=== PATIENT | female | born 1985 | race African-American/Black ===

== ENCOUNTER 2016-12-19 18:20 | Emergency (ER) | payer BC ==
[~2016-12-19] VITALS: Ht 152.4 cm; Wt 128.4 kg
[~2016-12-19 18:20] MED LIST: ASA81 PO; CEPH-568 PO; FOLI0.4T2 PO; GLU500 PO; IRON1TAB95 PO; PREN-89 PO; RANI-281 PO; VALA500T33 PO
[2016-12-19 18:57] VITALS: BP 140/66; PULSE 88; RESP 20; TEMP 98.2; O2SAT 98
--- NOTE | 2016-12-19 19:03 | NUR ---
Pt placed to ER waiting room in stable condition.
--- NOTE | 2016-12-19 19:50 | NUR ---
Pt ambulatory to bed 2. Report given to KIARA Roberson.
--- NOTE | 2016-12-19 19:50 | NUR ---
ER MD Prescott at bedside for evaluation
--- NOTE | 2016-12-19 20:03 | NUR ---
Patient to ER C/O right foot and lower leg swelling for the past week with tingling. Patient states that she saw primary physician but all labs came back normal. AAOx4, unlabored breathing, mild swelling to right leg, more pronounced than left side, no reddness, denies NV, no signs of acute distress.
--- NOTE | 2016-12-19 20:03 | NUR ---
Bria hough in [facility] - 12/20/16 at 0007 by HELLEN Patient to ER C/O right foot and lower leg
--- NOTE | 2016-12-19 20:08 | NUR ---
ER MD Prescott at bedside for evaluation
--- NOTE | 2016-12-19 20:30 | NUR ---
Financial Counselor at bedside for blood draw. Patient identified x2.
[2016-12-19 20:47] LABS: BASOPHILS # (AUTO) 0.1 K/uL (0.0-0.2); BASOPHILS % (AUTO) 1.3 % (0.0-2.0); EOSINOPHILS # (AUTO) 0.1 K/uL (0.0-0.4); EOSINOPHILS % (AUTO) 1.5 % (0.0-4.0); HEMATOCRIT 43.8 % (36-48); LYMPHOCYTES # (AUTO) 2.5 K/uL (1.0-5.5); LYMPHOCYTES % (AUTO) 33.6 % (20.5-51.5); MEAN CORPUSCULAR HEMOGLOBIN 30 pg (27-31); MEAN CORPUSCULAR HGB CONC 34 % (32-36); MEAN CORPUSCULAR VOLUME 88 fL (79.0-98.0); MONOCYTES # (AUTO) 0.5 K/uL (0.0-1.0); MONOCYTES % (AUTO) 7.1 % (1.7-9.3); NEUTROPHILS # (AUTO) 4.2 K/uL (1.8-7.7); NEUTROPHILS % (AUTO) 56.5 % (40.0-70.0); PLATELET COUNT (AUTO) 170 K/uL (130-430); RED BLOOD CELL COUNT(AUTO) 4.99 MIL/uL (4.2-6.2); RED CELL DISTRIBUTION WIDTH 12.8 % (9.0-15.0); WHITE BLOOD COUNT (AUTO) 7.4 K/uL (4.8-10.8)
--- NOTE | 2016-12-19 21:04 | NUR ---
Patient calm, resting, no signs of acute distress.
[2016-12-19 21:11] LABS: ALANINE AMINOTRANSFERASE 29 U/L (12-78); ALBUMIN 3.8 g/dL (3.4-4.8); ANION GAP 9 (5-15); ASPARTATE AMINOTRANSFERASE 13 U/L (10-37); CHLORIDE 106 mmol/L (98-107); GLUCOSE 126 mg/dL (70-99); POTASSIUM 3.3 mmol/L (3.5-5.1); SODIUM SERUM 141 mmol/L (136-145); TOTAL BILIRUBIN 0.2 mg/dL (0.0-1.0); TOTAL PROTEIN, SERUM 7.6 g/dL (6.4-8.3); UREA NITROGEN, BLOOD 14 mg/dL (8-21)
[2016-12-19 21:12] LABS: GFR AFRICAN AMERICAN 107 mL/min (>90)
[2016-12-19 21:40] VITALS: BP 124/71; PULSE 78; RESP 17; TEMP 98.1; O2SAT 97
--- NOTE | 2016-12-19 21:40 | NUR ---
Patient given written and verbal discharge instructions and verbalizes understanding. ER MD Prescott discussed with patient the results and treatment provided. Patient in stable condition. ID arm band removed. Patient educated on pain management and to follow up with PMD. Pain Scale 0/10. Opportunity for questions provided and answered.
== END 2016-12-19 21:40 | disposition home or self-care (01) ==
LOC: SED 18:20
DX: R60.9 Edema, unspecified (principal); R20.2 Paresthesia of skin; E28.2 Polycystic ovarian syndrome; Z88.1 Allergy status to other antibiotic agents
CPT/HCPCS: 36415; 71010; 80053; 83880; 84484; 85025; 93005; 99285

== ENCOUNTER 2017-04-05 11:59 | Day surgery (SDC) | payer BC ==
[~2017-04-05] VITALS: Ht 152.4 cm; Wt 127.9 kg
[2017-04-05] MEDS ORDERED: PROPOFOL 200MG/ 20ML VIAL (DIPRIVAN) IV ONE (12:16)
[2017-04-05] MEDS ORDERED: NS 1000 ML BAG IV ONE (12:16)
[2017-04-05] MEDS ORDERED: MIDAZOLAM HCL 5 MG/5 ML VIAL IVP ONE (12:16)
[2017-04-05] MEDS ORDERED: ONDANSETRON HCL 4 MG/2 ML VIAL IVP ONE (12:16)
[2017-04-05] MEDS ORDERED: CEFAZOLIN 2 GM IVPB PREMIX 50 ML IV ONE (12:16)
[2017-04-05] MEDS ORDERED: KETOROLAC TROMETHAMINE 30 MG VIAL IVP ONE (12:16)
[2017-04-05] MEDS ORDERED: SEVOFLURANE 15 MIN GAS INH ONE (12:16)
[2017-04-05] MEDS ORDERED: LR 1,000 ML IV.SOLN IV ONE (12:16)
[2017-04-05] MEDS ORDERED: fentaNYL CITRATE/PF 100 MCG/2 ML AMP IVP ONE (12:16)
[2017-04-05 13:06] LABS: HEMATOCRIT 42.1 % (36-48); HEMOGLOBIN 13.8 g/dL (12.0-16.0); MEAN CORPUSCULAR HGB CONC 33 % (32-36)
[2017-04-05 13:07] LABS: CALCIUM 8.6 mg/dL (8.4-11.0); CREATININE 0.72 mg/dL (0.55-1.30); POTASSIUM 3.7 mmol/L (3.5-5.1)
[2017-04-05 13:13] LABS: BASOPHILS % (AUTO) 0.3 % (0.0-2.0); EOSINOPHILS % (AUTO) 0.4 % (0.0-4.0); LYMPHOCYTES # (AUTO) 1.9 K/uL (1.0-5.5); LYMPHOCYTES % (AUTO) 24.9 % (20.5-51.5); MEAN CORPUSCULAR HEMOGLOBIN 29 pg (27-31); MEAN CORPUSCULAR VOLUME 90 fL (79.0-98.0); MONOCYTES # (AUTO) 0.4 K/uL (0.0-1.0); MONOCYTES % (AUTO) 5.4 % (1.7-9.3); NEUTROPHILS # (AUTO) 5.5 K/uL (1.8-7.7); PLATELET COUNT (AUTO) 146 K/uL (130-430); RED BLOOD CELL COUNT(AUTO) 4.68 MIL/uL (4.2-6.2); RED CELL DISTRIBUTION WIDTH 13.3 % (9.0-15.0); WHITE BLOOD COUNT (AUTO) 7.8 K/uL (4.8-10.8)
[2017-04-05] MEDS ORDERED: HYDROmorphone 2 MG/ML VIAL IVP PRN ×2 (13:30)
[2017-04-05] MEDS ORDERED: HYDROmorphone 1 MG INJ. 1 MG/ML AMPUL IVP PRN (13:30)
[2017-04-05] MEDS ORDERED: MEPERIDINE HCL/PF 25 MG/ML DISP.SYRIN IVP PRN ×2 (13:30)
[2017-04-05] MEDS ORDERED: LR 1,000 ML IV SCH (13:30)
[2017-04-05] MEDS ORDERED: ONDANSETRON HCL 4 MG/2 ML VIAL IVP PRN ×2 (13:30→14:15)
[2017-04-05] MEDS ORDERED: OXYCODONE/ACETAMINOPHEN 5-325 TABLET PO PRN ×2 (14:15)
[2017-04-05] MEDS ORDERED: IBUPROFEN 800 MG TABLET PO PRN (14:15)
[2017-04-05] MEDS ORDERED: HYDROmorphone 1 MG INJ. 1 MG/ML AMPUL ONE (14:32)
[2017-04-05 14:53] VITALS: BP_SYST 118
[2017-04-05] MEDS ORDERED: OXYCODONE/ACETAMINOPHEN 5-325 TABLET ONE (15:05)
== END 2017-04-05 16:55 | disposition home or self-care (01) ==
LOC: SDS 11:59
PROVIDERS: ATTEND Obstetrics & Gynecology
DX: D26.9 Other benign neoplasm of uterus, unspecified (principal); F41.9 Anxiety disorder, unspecified; E66.01 Morbid (severe) obesity due to excess calories; G47.33 Obstructive sleep apnea (adult) (pediatric); E28.2 Polycystic ovarian syndrome; D69.6 Thrombocytopenia, unspecified; Z98.890 Other specified postprocedural states; Z80.0 Family history of malignant neoplasm of digestive organs; Z68.43 Body mass index [BMI] 50.0-59.9, adult; Z80.3 Family history of malignant neoplasm of breast
CPT/HCPCS: 36415; 58563; 80048; 84703; 85025; 86886; 86900; 86901; 88305; 88331; J0690; J1170 ×2; J1885; J2250; J2405; J2704; J3010; J7030; J7120

== ENCOUNTER 2017-11-30 02:21 | Emergency (ER) | payer BC ==
[~2017-11-30] VITALS: Ht 152.4 cm; Wt 127.0 kg
[2017-11-30 02:30] VITALS: BP_SYST 119
== END 2017-11-30 02:50 | disposition home or self-care (01) ==
LOC: SED 02:21
DX: F41.9 Anxiety disorder, unspecified (principal); Z88.2 Allergy status to sulfonamides; Z88.1 Allergy status to other antibiotic agents; Z79.899 Other long term (current) drug therapy
CPT/HCPCS: 99284

== ENCOUNTER 2020-07-11 07:52 | Day surgery (SDC) | payer BC, SELFPAY ==
[2020-07-04 17:08] LABS: BASOPHILS % (AUTO) 0.7 % (0.0-2.0); EOSINOPHILS % (AUTO) 0.6 % (0.0-4.0); HEMATOCRIT 46.3 % (36-48); HEMOGLOBIN 15.1 g/dL (12.0-16.0); LYMPHOCYTES % (AUTO) 37.2 % (20.5-51.5); MEAN CORPUSCULAR HEMOGLOBIN 31 pg (27-31); MEAN CORPUSCULAR HGB CONC 33 % (32-36); MEAN CORPUSCULAR VOLUME 95 fL (79.0-98.0); MONOCYTES # (AUTO) 0.4 K/uL (0.0-1.0); MONOCYTES % (AUTO) 7.1 % (1.7-9.3); NEUTROPHILS % (AUTO) 54.4 % (40.0-70.0); PLATELET COUNT (AUTO) 129 K/uL (130-430); RED BLOOD CELL COUNT(AUTO) 4.88 MIL/uL (4.2-6.2); RED CELL DISTRIBUTION WIDTH 13.5 % (9.0-15.0); WHITE BLOOD COUNT (AUTO) 5.5 K/uL (4.8-10.8)
[2020-07-04 17:10] LABS: CALCIUM 8.8 mg/dL (8.4-11.0); CREATININE 0.62 mg/dL (0.55-1.30); POTASSIUM 4.9 mmol/L (3.5-5.1)
[2020-07-04 17:29] LABS: PROTHROMBIN TIME 10.2 SECS (9.5-12.5)
[2020-07-04 17:29] LABS: BILIRUBIN,URINE NEGATIVE (NEGATIVE); BLOOD, URINE NEGATIVE (NEGATIVE); CLARITY/URINE CLEAR (CLEAR); COLOR,URINE YELLOW (YELLOW); GLUCOSE,URINE NEGATIVE (NEGATIVE); KETONES,URINE NEGATIVE (NEGATIVE); LEUKOCYTE ESTERASE ,URINE NEGATIVE (NEGATIVE); NITRITE, URINE NEGATIVE (NEGATIVE); PROTEIN URINE NEGATIVE (NEGATIVE); UROBILINOGEN,URINE 0.2 (0.2-1.0)
[2020-07-04 17:31] LABS: HCG,QUAL RESULT NEGATIVE (NEGATIVE)
[~2020-07-11] VITALS: Ht 154.9 cm; Wt 93.0 kg
[~2020-07-11 07:52] MED LIST changes: -RANI-281 PO; +RANI-673 PO
[2020-07-11 09:36] LABS: HCG,QUAL RESULT NEGATIVE (NEGATIVE)
[2020-07-11] MEDS ORDERED: LR 1,000 ML IV.SOLN IV ONE (10:51)
[2020-07-11] MEDS ORDERED: PROPOFOL 200MG/ 20ML VIAL (DIPRIVAN) IV ONE (10:51)
[2020-07-11] MEDS ORDERED: ISOFLURANE 15 MIN GAS INH ONE (10:51)
[2020-07-11] MEDS ORDERED: ONDANSETRON HCL 4 MG/2 ML VIAL IVP ONE (10:51)
[2020-07-11] MEDS ORDERED: SUGAMMADEX SODIUM 200 MG/2 ML VIAL IV ONE (10:51)
[2020-07-11] MEDS ORDERED: DEXAMETHASONE SOD PHOSPHATE 4 MG/ML VIAL IVP ONE (10:51)
[2020-07-11] MEDS ORDERED: ROCURONIUM BROMIDE 10 MG/ML (ZEMURON) IV ONE (10:51)
[2020-07-11] MEDS ORDERED: KETOROLAC TROMETHAMINE 30 MG VIAL IVP ONE (10:51)
[2020-07-11] MEDS ORDERED: LIDOCAINE 1% 10 MG/ML, 20 ML MDV INJ ONE (10:51)
[2020-07-11] MEDS ORDERED: fentaNYL CITRATE/PF 100 MCG/2 ML AMP IVP ONE (10:51)
[2020-07-11] MEDS ORDERED: SUCCINYLCHOLINE CHLORIDE 20 MG/ML(QUELICIN) IVP ONE (10:51)
[2020-07-11] MEDS ORDERED: MIDAZOLAM HCL 5 MG/5 ML VIAL IVP ONE (10:51)
[2020-07-11] MEDS ORDERED: MIDAZOLAM HCL 2 MG/2 ML VIAL (VERSED) IVP PRN (11:30)
[2020-07-11] MEDS ORDERED: HYDROmorphone 1 MG INJ. 1 MG/ML AMPUL IVP PRN ×2 (11:30)
[2020-07-11] MEDS ORDERED: MEPERIDINE HCL/PF 25 MG/ML DISP.SYRIN IVP PRN (11:30)
[2020-07-11] MEDS ORDERED: LR 1,000 ML IV SCH (11:30)
[2020-07-11] MEDS ORDERED: METOCLOPRAMIDE HCL 10 MG/2 ML VIAL IVP PRN (11:30)
[2020-07-11] MEDS ORDERED: ONDANSETRON HCL 4 MG/2 ML VIAL IVP PRN (11:30)
[2020-07-11] MEDS ORDERED: OXYCODONE/ACETAMINOPHEN 5-325 TABLET PO PRN ×2 (13:15)
[2020-07-11] MEDS ORDERED: ONDANSETRON HCL 4 MG/2 ML VIAL IM PRN (13:15)
[2020-07-11] MEDS ORDERED: IBUPROFEN 800 MG TABLET PO PRN (13:15)
[2020-07-11] MEDS ORDERED: HYDROmorphone 1 MG INJ. 1 MG/ML AMPUL ONE (13:40)
[2020-07-11 15:36] VITALS: BP_SYST 96
== END 2020-07-11 15:15 | disposition home or self-care (01) ==
LOC: SMU 07:52 → SDS 07:52
PROVIDERS: ATTEND Obstetrics & Gynecology
DX: D27.0 Benign neoplasm of right ovary (principal); N83.8 Other noninflammatory disorders of ovary, fallopian tube and broad ligament; Z20.828 Contact with and (suspected) exposure to other viral communicable diseases; E66.01 Morbid (severe) obesity due to excess calories; F32.9 Major depressive disorder, single episode, unspecified; F41.9 Anxiety disorder, unspecified; Z79.899 Other long term (current) drug therapy; Z79.01 Long term (current) use of anticoagulants
CPT/HCPCS: 36415; 58661; 80048; 81003; 84703 ×2; 85025; 85610; 85730; 87086; 88305; 88307; C1727; C1782; C9399; J0330; J1100; J1170; J1885; J2001; J2250; J2405; J2704; J3010; J7120; U0003

== ENCOUNTER 2024-05-10 16:55 | Emergency (ER) | payer BC ==
[~2024-05-10] VITALS: Ht 154.9 cm; Wt 97.1 kg
[~2024-05-10 16:55] MED LIST changes: -FOLI0.4T2 PO; +FOLI0.4T6 PO
[2024-05-10 16:59] VITALS: BP_SYST 120; PULSE 76; RESP 17; TEMP 97; O2SAT 99
[2024-05-10] MEDS: KETOROLAC TROMETHAMINE 30 MG VIAL IM ONE (17:35)
[2024-05-10 17:40] LABS: BILIRUBIN,URINE NEGATIVE (NEGATIVE); BLOOD, URINE NEGATIVE (NEGATIVE); CLARITY/URINE CLEAR (CLEAR); COLOR,URINE YELLOW (YELLOW); GLUCOSE,URINE NEGATIVE (NEGATIVE); KETONES,URINE NEGATIVE (NEGATIVE); LEUKOCYTE ESTERASE ,URINE NEGATIVE (NEGATIVE); NITRITE, URINE NEGATIVE (NEGATIVE); PROTEIN URINE NEGATIVE (NEGATIVE)
[2024-05-10 18:30] LABS: BASOPHILS # (AUTO) 0.1 K/uL (0.0-0.2); BASOPHILS % (AUTO) 1.4 % (0.0-2.0); EOSINOPHILS # (AUTO) 0.1 K/uL (0.0-0.4); EOSINOPHILS % (AUTO) 1.3 % (0.0-4.0); LYMPHOCYTES # (AUTO) 0.9 K/uL (1.0-5.5); LYMPHOCYTES % (AUTO) 13.8 % (20.5-51.5); MEAN CORPUSCULAR HEMOGLOBIN 32 pg (27-31); MEAN CORPUSCULAR HGB CONC 34 % (32-36); MEAN CORPUSCULAR VOLUME 92 fL (79.0-98.0); MONOCYTES # (AUTO) 0.3 K/uL (0.0-1.0); MONOCYTES % (AUTO) 5.4 % (1.7-9.3); NEUTROPHILS # (AUTO) 4.9 K/uL (1.8-7.7); NEUTROPHILS % (AUTO) 78.1 % (40.0-70.0); PLATELET COUNT (AUTO) 160 K/uL (130-430); RED BLOOD CELL COUNT(AUTO) 4.11 MIL/uL (4.2-6.2); RED CELL DISTRIBUTION WIDTH 13.3 % (9.0-15.0); WHITE BLOOD COUNT (AUTO) 6.3 K/uL (4.8-10.8)
[2024-05-10 18:39] LABS: CALCIUM 8.5 mg/dL (8.4-11.0); CREATININE 0.61 mg/dL (0.55-1.30)
[2024-05-10 21:04] VITALS: BP_SYST 109; PULSE 98; RESP 20; TEMP 98; O2SAT 98
== END 2024-05-10 21:04 | disposition home or self-care (01) ==
LOC: SED 16:55
DX: N83.202 Unspecified ovarian cyst, left side (principal); R10.32 Left lower quadrant pain; Z88.2 Allergy status to sulfonamides; Z88.6 Allergy status to analgesic agent
CPT/HCPCS: 99285; 74176; 76856; 80048; 81001; 85025; 36415; 96372; 81003; J1885